=== PATIENT | male | born 1935 | race Caucasian/White ===

== ENCOUNTER 2024-04-18 09:00 | Day surgery (SDC) | payer MEDICARE, BC, SELFPAY ==
[2024-04-18] VITALS (23 sets, daily range): BP systolic 105–178; BP diastolic 62–110; PULSE 53–85; RESP 14–20; TEMP 35.8–36.4; O2SAT 96–100; BMI 28.8
[2024-04-18] MEDS: MIDAZOLAM HCL 1 MG/ML inj IVP (09:12)
[2024-04-18] MEDS: OXYCODONE (CR) 10 MG TAB.ER.12H PO (09:45)
[2024-04-18] MEDS: ACETAMINOPHEN 500 MG TABLET 1000 MG PO ×3 (09:45→21:35)
[2024-04-18] MEDS: CELECOXIB 200 MG CAPSULE PO (09:45)
[2024-04-18] MEDS: LACTATED RINGERS 1000 ML 1,000 ML 100 ML IV (09:50)
[2024-04-18] MEDS: fentaNYL 100 MCG/2 ML inj IVP (09:57)
--- NOTE | 2024-04-18 10:17 | P.NB_ITS ---
Nerve Block Nerve Block Time Seen by Provider: 10:10 Date Seen: 04/18/24 Type of block requested by surgeon for post-operative analgesia: SERGIO/LFCN Side: right Time out performed: Yes Verification of patient name: Yes Verification of date of : Yes Site marking: site marked Name of person performing procedure: Andrea Carbone Continuous monitoring Was continuous monitoring of O2 sat, B/P, quality assurance monitor body, recorded every 15 minutes?: Yes Procedure Checklist: sterile prep, needles and gloves Ultrasound guided. Images saved: Yes Medications given in 5ml increments after negative aspiration: Marcaine %: 0.5 mL: 30 Needle gauge: 20 Precedex (mcg): 25 Patient tolerated procedure well: Yes Additional comments: Injected in 5 mL increments after negative aspiration Block Charges Block Charge (with Pro Fee): Femoral Nerve Use of Ultrasound Machine for Block: Yes- US Guidance/pain block
--- NOTE | 2024-04-18 10:18 | SUR.PREOP ---
TIME?OUT:?954, right hip PT/RN/MDA?VERIFICATION?OF?SURGICAL?SITE,?PROCEDURE,?AND?CONSENT OBTAINED?PRIOR?TO?INVASIVE?PROCEDURE.
[2024-04-18] MEDS: TRANEXAMIC ACID 100 MG/ML INJ 1000 MG IV (10:32)
[2024-04-18] MEDS: CEFAZOLIN 2 GM INJ IVP (10:32)
--- NOTE | 2024-04-18 11:00 | CRLHL7_ITS ---
For Patients: As a result of the Century Cures Act, medical imaging exams and procedure reports are released immediately into your electronic medical record. You may view this report before your referring provider. If you have questions, please contact your health care provider. INDICATION: Right hip arthroplasty. Intraoperative evaluation. TECHNIQUE: Fluoroscopically guided intraoperative evaluation at the time of right hip arthroplasty. FINDINGS: Two spot images of the right hip demonstrate a right total hip arthroplasty. Adequate alignment. 61.8 seconds fluoroscopy time utilized. IMPRESSION: 61.8 seconds fluoroscopy time utilized intraoperatively. Dictated by Demar Alfaro MD @ 04/19/2024 2:44:05 PM (Electronically Signed)
--- NOTE | 2024-04-18 11:02 | SUR.OPER ---
PATIENT QUESTIONS ANSWERED SATISFACTORILY PREOPERATIVELY. PATIENT BROUGHT TO OR #2 PER CART AFTER ADMINISTRATION OF A BLOCK. Patient positioned supine on OR #2 bed. The perioperative team supported arms bilaterally on arm boards. Final approval of positioning by surgeon.
--- NOTE | 2024-04-18 12:11 | CRLHL7_ITS ---
For Patients: As a result of the Century Cures Act, medical imaging exams and procedure reports are released immediately into your electronic medical record. You may view this report before your referring provider. If you have questions, please contact your health care provider. INDICATION: Postoperative evaluation. Right hip arthroplasty. TECHNIQUE: AP pelvis and cross-table lateral view of the right hip. COMPARISON: Pre-surgical images March 06, 2024. FINDINGS: There is a new right total hip arthroplasty. The components are adequately aligned and well seated. Air within the soft tissues and joint space related to the surgery. IMPRESSION: New postsurgical change from right total hip arthroplasty. The components are adequately aligned and well seated. Dictated by Demar Alfaro MD @ 04/19/2024 2:50:11 PM (Electronically Signed)
--- NOTE | 2024-04-18 12:14 | PM.ORPRC ---
Procedure Note Date of procedure: 04/18/24 Procedure: PREOPERATIVE DIAGNOSIS: Right hip osteoarthritis POSTOPERATIVE DIAGNOSIS: Right hip osteoarthritis NAME OF OPERATION: Right total hip arthroplasty SURGEON: Sav Magallanes MD TITLE I DIRECTOR: Kristine Resendez PA-C, ANG Thomson IMPLANTS: 1. [employer] [place] # 56 sector ingrowth cup 2. 36 x 56 +4 neutral polyethylene 3. [place] # 8 standard collared cemented stem 4. 36 + 1.5 cobalt chrome femoral head ANESTHESIA: General ESTIMATED BLOOD LOSS: 280 cc COMPLICATIONS: None SPECIMENS: None DRAINS: None PREOPERATIVE ANTIBIOTICS: Ancef 2 grams INDICATIONS: The patient is a 88-year-old with a longstanding history of severe, unrelenting right hip pain secondary to end-stage right hip osteoarthritis. Despite appropriate nonoperative management, including activity modification, use of an assist device, anti-inflammatories, [id number] pain medication, physical therapy and injections, they continue to have pain and disability. Operative intervention was offered. The risks, benefits and expected outcomes were discussed in detail. These included but were not limited to: Infection, bleeding, injury to blood vessel or nerve, venous thromboembolism. All questions were answered to their satisfaction. Use of an client services assistant was necessary throughout the case for patient positioning and safety, soft tissue retraction and closure. PROCEDURE: The patient was placed supine on the Hydro table. General anesthesia was administered. The client services assistant made sure the patient was properly positioned. The right hip was prepped and draped in the usual sterile fashion. The image intensifier was brought in for a perfect AP pelvis and a perfect double tear drop AP view of each hip which were used for intraoperative templating with our fluoroscopic guide. An oblique incision was made 3 cm distal and 3 cm lateral to the anterior superior iliac spine. The client services assistant retracted the soft tissues to protect them. Subcutaneous dissection was taken with electrocautery to the superficial fascia. The fascia was divided in line with the incision. Blunt dissection was carried medially to the tensor fascia ronaldo and sartorius interval. Deep dissection was carried with electrocautery. The circumflex vessels were cauterized and divided. The capsule was exposed and then divided in a T-fashion, tagged with #1 Ethibond sutures. Retractors were placed in the joint, held by the client services assistant. The corkscrew was placed in the femoral head. The neck cut was made in the subcapital region. We made a second neck cut more distal. The napkin ring of bone was removed. The femoral head was removed intact. Acetabular retractors were placed, held by the client services assistant. The labrum was sharply debrided. The capsule was released. The 43 mm reamer was used to the true medial wall. We then enlarged in 2 mm increments using the image intensifier for our reamer placement. We impacted the cup which had excellent purchase. We placed the polyethylene. Attention was then turned to the proximal femur. The limb was placed in 140 degrees of external rotation, maximum extension and adduction. A significant amount of time was spent releasing the capsule to allow us to deliver the femur into the wound and complete the femoral side safely. Retractors were held by the client services assistant throughout the femoral preparation. The supervisor transferring and boxing and canal finder were used. Broaches were used to a stable size. The calcar reamer was used. Trial components were placed. The hip was reduced and was found to be stable with appropriate soft tissue tension. Length and offset had been nicely restored using the image intensifier and our fluoroscopic guide. Trial components were removed. The cement restrictor was placed. The canal was irrigated with pulse lavage and then thoroughly dried. Cement was placed retrograde with the gun and hand pressurized. The stem was placed in the cement mantle. The cement was allowed to harden. We placed the femoral head. Again, the hip was reduced and was found to be stable with appropriate soft tissue tension. Length and offset had been nicely restored. The client services assistant did a three minute dilute Betadine solution soak. The client services assistant irrigated the wound with 3 liters of normal saline via pulse lavage. The client services assistant repaired the anterior capsule with a #1 Vicryl and our previously placed Ethibond sutures. The client services assistant closed the fascia over the tensor fascia ronaldo with a #1 PDO Stratafix, subcutaneous tissues with 2-0 Vicryl, skin with a running 3-0 Stratafix and glue. A dry dressing was applied by the client services assistant. Sponge and needle counts were correct x 2. The patient tolerated the procedure well; there were no apparent complications. They were awakened and extubated in the operating room, sent to the Post-Anesthesia Care Unit in satisfactory condition. PLAN: 1. The patient will be mobilized with physical therapy, weight-bearing as tolerates 2. Xarelto x 5 days then aspirin x 30 days will be used for DVT prophylaxis 3. The patient will be discharged once medically appropriate
--- NOTE | 2024-04-18 13:02 | W.ANESCHARGE ---
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
--- NOTE | 2024-04-18 15:23 | P.IMCN_ITS ---
Date of Consult Consult date: 04/18/24 Requesting Physician: Orthopedics Primary Care Provider: Jayjay Borden MD Consult Narrative Narrative: HOSPITALIST CONSULT Right total hip arthroplasty SURGEON: Sav Magallanes MD SENIOR ELECTRICAL PROJECT MANAGER: Kristine Resendez PA-C, ANG Thomson ANESTHESIA: General ESTIMATED BLOOD LOSS: 280 cc COMPLICATIONS: None The hospital medicine team was asked by the orthopedic surgery team to manage the patient's atrial fibrillation not on anticoagulation, HTN, prediabetes, and hx of colon cancer. There have been no perioperative complications. I have updated and reviewed the active medical problems, past medical history, past surgical history, social history, allergies and medications in our electronic EMR. This includes a cross reference to care everywhere in [facility] and with [facility] databases. PHYSICAL EXAM: CODE STATUS: FULL CODE CONSTITUTIONAL: Conversive, good historian. A/O. Knows setting and context. VITAL SIGNS: see record. HEENT: Normocephalic, atraumatic. PERRL, EOMI, conjunctivae pink, no scleral icterus. Ears and nose externally normal. Pharynx normal. NECK: No JVD. No carotid bruit, no thyromegaly, no adenopathy. CHEST: Clear to auscultation bilaterally HEART: S1 and S2 normal. ABDOMEN: Flat, soft, nontender. Normal bowel sounds. Moderately obese. EXTREMITIES: No edema. MUSCULOSKELETAL: right hip has SDI; no obvious bleeding or hematoma. NEURO: Cranial nerves intact. Mentation normal. Normal affect. SKIN: No rashes, petechiae, concerning changes PSYCHIATRIC: Mentation normal. INVESTIGATIONS: EMR Reviewed; Pre-OP Reviewed DISPOSITION: DVT: 5 days of Xarelto, Asp 81mg BID for 25 days GI: PO intake PFSH [facility] Medical History (Updated 04/18/24 @ 19:20 by Paloma Gabriel MD) Osteoarthritis of right hip ?M16.11 - Unilateral primary osteoarthritis, right hip (ICD-10) Osteoarthritis of right shoulder ?M19.011 - Primary osteoarthritis, right shoulder (ICD-10) Right rotator cuff tear arthropathy ?M75.101 - Unspecified rotator cuff tear or rupture of right shoulder, not specified as traumatic (ICD-10) ?M12.811 - Other specific arthropathies, not elsewhere classified, right shoulder (ICD-10) Bradycardia ?R00.1 - Bradycardia, unspecified (ICD-10) Unspecified essential hypertension ?I10 - Essential (primary) hypertension (ICD-10) Atrial fibrillation ?I48.91 - Unspecified atrial fibrillation (ICD-10) GERD (gastroesophageal reflux disease) ?K21.9 - Gastro-esophageal reflux disease without esophagitis (ICD-10) Encounter for laboratory test ?Z01.89 - Encounter for other specified special examinations (ICD-10) Anemia (09/30/11) ?D64.9 - Anemia, unspecified (ICD-10) Port-A-Cath in place (01/05/12) ?Z95.828 - Presence of other vascular implants and grafts (ICD-10) Colon cancer (11/29/11) ?C18.9 - Malignant neoplasm of colon, unspecified (ICD-10) Surgical History (Updated 04/18/24 @ 16:09 by Buffy Wood ~ [facility]) 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) ?Z96.641 - Presence of right artificial hip joint (ICD-10) H/O lysis of adhesions ?Z98.890 - Other specified postprocedural states (ICD-10) History of carpal tunnel surgery of right wrist (01/16/08) ?Z98.890 - Other specified postprocedural states (ICD-10) S/P laparoscopic colectomy (11/08/11) ?Z90.49 - Acquired absence of other specified parts of digestive tract (ICD- 10) History of arthroscopy of right shoulder (01/27/09) ?Z98.890 - Other specified postprocedural states (ICD-10) History of carpal tunnel surgery of left wrist (12/10/08) ?Z98.890 - Other specified postprocedural states (ICD-10) H/O right hemicolectomy (11/08/11) ?Z90.49 - Acquired absence of other specified parts of digestive tract (ICD- 10) History of cholecystectomy ?Z90.49 - Acquired absence of other specified parts of digestive tract (ICD- 10) Social History (Reviewed 03/06/24 @ 09:27 by Buffy Wood ~ [facility], [facility]) Narrative: -Rocío former smoker 50+ years ago What is your current living situation?: I presently have a place to live In the past 12 months, utilities in danger of being shut off: no In past 12 months, lack of transportation kept you from medical appts, meetings, work, or getting things needed for daily living: no In the past 12 mos, have been you worried that your food would run out before you had money to buy more?: never true In the past 12 mos, the food you bought just didn't last and you didn't have money to buy more?: never true Smoking Status: Former smoker What tobacco products do you use: cigarettes Smoking quit date/years: >15 years ago Do you use any of these nicotine containing products: None Second hand tobacco smoke exposure: No How often do you have a drink containing alcohol: 2-3 times a week Alcohol type: beer How many standard drinks containing alcohol do you have on a typical day: 1 or 2 AUDIT-C Alcohol total score: 3 Caffeine: Yes How often does anyone, including family, friends and others, physically hurt you : never How often does anyone, including family, friends and others, insult or talk down to you: never How often does anyone, including family, friends and others, threaten you with harm: never How often does anyone, including family, friends and others, scream or curse at you: never Meds Home Medications and Allergies Home Medications ?Medication ?Instructions ?Recorded ?Confirmed ?Type aspirin 81 mg tablet,delayed 81 mg PO DAILY 10/14/22 04/18/24 History release atenolol 25 mg tablet 25 mg PO Q48H 10/14/22 04/18/24 History cholecalciferol (vitamin D3) 50 50 mcg PO DAILY 10/14/22 04/18/24 History mcg (2,000 unit) capsule hydrochlorothiazide 25 mg tablet 25 mg PO DAILY 10/14/22 04/15/24 History terazosin 2 mg capsule 4 mg PO HS 10/14/22 04/18/24 History Allergies Allergy/AdvReac Type Severity Reaction Status Date / Time lisinopril Allergy Dizziness Verified 03/06/24 09:25 Exam Const: Vital Signs, click to edit/add: Vital Signs - 24 hr 04/18/24 09:39 04/18/24 09:55 04/18/24 10:00 Temperature 97.0 F L Pulse Rate 80 82 82 Respiratory Rate 20 20 20 Blood Pressure 156/108 H 164/110 H 178/103 H Pulse Oximetry 98 98 99 Oxygen Delivery Me thod Room Air Nasal Cannula Nasal Cannula Oxygen Flow Rate 3 3 04/18/24 10:05 04/18/24 10:15 04/18/24 12:55 Temperature 96.9 F L Pulse Rate 79 77 53 L Respiratory Rate 20 20 14 Blood Pressure 162/110 H 139/99 H 107/65 Pulse Oximetry 99 99 96 Oxygen Delivery Me thod Nasal Cannula Nasal Cannula Room Air Oxygen Flow Rate 3 3 04/18/24 13:00 04/18/24 13:05 04/18/24 13:10 Temperature 97.0 F L Pulse Rate 64 60 59 L Respiratory Rate 14 16 16 Blood Pressure 105/62 119/80 115/81 Pulse Oximetry 98 98 98 Oxygen Delivery Me thod Room Air Room Air Room Air Oxygen Flow Rate 04/18/24 13:15 04/18/24 13:20 04/18/24 13:30 Temperature 97.3 F L 96.4 F L Pulse Rate 61 62 55 L Respiratory Rate 16 16 16 Blood Pressure 116/76 121/79 135/75 Pulse Oximetry 97 98 96 Oxygen Delivery Me thod Room Air Room Air Room Air Oxygen Flow Rate 04/18/24 13:45 04/18/24 14:00 04/18/24 14:15 Temperature 96.7 F L Pulse Rate 57 L 62 67 Respiratory Rate 16 16 16 Blood Pressure 130/69 130/87 132/87 Pulse Oximetry 98 99 99 Oxygen Delivery Me thod Room Air Room Air Room Air Oxygen Flow Rate 04/18/24 14:30 04/18/24 15:00 Temperature 97.6 F Pulse Rate 78 74 Respiratory Rate 16 16 Blood Pressure 123/73 153/91 H Pulse Oximetry 99 99 Oxygen Delivery Me thod Room Air Room Air Oxygen Flow Rate Assessment and Plan Assessment and plan (1) Status post right hip replacement: Problem comment: 04/18/2024, Dr. Magallanes Status: Acute (2) Atrial fibrillation: Problem comment: -rate controlled -placed on telemetry overnight -pt is not on chronic anticoagulation - we discussed at length is vitality/inde pendence and risk of cardioembolic stroke and lack of treatment for those events; pt will think about it Status: Acute (3) Essential hypertension: Problem comment: -stable Status: Acute (4) Prediabetes: Status: Acute
[2024-04-18] MEDS: CEFAZOLIN 2 GM in 0.9 % SODIUM CHLORIDE Mini-bag 100 ML IVPB (17:59)
--- NOTE | 2024-04-18 19:20 | PC.NURSE ---
The patient is pleasant and alert and orientated. Pain is adequately controlled with scheduled tylenol. R hip dressing is CDI with ice pack. VSS on RA. Up Ax1 w/ GB and RW. Calls appropriately. No N/v. Has voided. Call light within reach. Lanny RAPHAEL BSN
[2024-04-18] MEDS: TERAZOSIN HCL 1 MG CAPSULE 4 MG PO (21:35)
[2024-04-19] MEDS: CEFAZOLIN 2 GM in 0.9 % SODIUM CHLORIDE Mini-bag 100 ML IVPB (00:51)
[2024-04-19 02:19] VITALS: BP 142/90; PULSE 74; RESP 16; TEMP 35.9; O2SAT 99
[2024-04-19] MEDS: ACETAMINOPHEN 500 MG TABLET 1000 MG PO ×2 (04:01→10:58)
[2024-04-19] MEDS: OXYCODONE 5 MG TABLET PO ×2 (04:01→08:38)
--- NOTE | 2024-04-19 06:12 | PC.NURSE ---
End of shift [id number]:? Pt AxOx4, cooperative, and pleasant. Pt SBA GB W, tolerating activity well. Pt reported pain during?shift, advertising writer utilized repositioning, scheduled and PRN medication. Pt is continent of the bladder. CMS intact.?Dressing to the R hip is CDI. Pt appears resting with call light in reach.?? ?
[2024-04-19 06:48] LABS: Basophils Percent Auto 0.2 % (0.0-3.0); Eosinophils Percent Auto 0.2 % (0.0-7.0); Hematocrit 40.6 % (37.0-53.0); Hemoglobin* 13.7 gm/dL (13.5-17.5); Immature Granulocytes Pct Auto 0.3 %; Lymphocytes Percent Auto 10.7 % (20-44); Mean Corpuscular HGB Conc 34 gm/dL (32-36); Mean Corpuscular Hemoglobin 29 pg (26-34); Mean Corpuscular Volume 85 fL (80-100); Monocytes Percent Auto 6.7 % (0.0-11.0); Neutrophils Percent Auto 81.9 % (42.0-72.0); Platelet Count* 227 K/uL (140-440); RDW Coefficient of Variation % 12.6 % (11.5-15.5); Red Blood Count 4.77 m/uL (4.30-5.90); White Blood Count* 11.77 K/uL (4.50-11.00)
[2024-04-19 06:49] LABS: Slide Review Reflex No
[2024-04-19 06:57] LABS: Potassium* 4.5 mmol/L (3.6-5.1); Sodium* 133 mmol/L (135-149)
[2024-04-19 07:00] VITALS: RESP 18; O2SAT 94
[2024-04-19 07:00] LABS: Blood Urea Nitrogen* 30 mg/dL (7-30); Est. Creatinine Clearance* 54.75; Estimated Glomerular Filt Rate 73 ml/min
[2024-04-19 07:30] VITALS: PULSE 78
--- NOTE | 2024-04-19 08:20 | P.ORPN_ITS ---
Subjective Subjective Time Seen by Provider: 08:20 Date Seen: 04/19/24 Principal diagnosis: Status post right hip replacement Interval history: Tania is comfortable and conversive. He will discharge to home with his and daughter today. Ortho Exam Narrative Exam Narrative: Alert and oriented x3. Patient is in no acute distress. Converses without labored breathing. Hearing is grossly intact. Ambulates with a walker. Examination of the right hip shows the dressing is intact. Mild ecchymosis. Mild soft tissue edema. CMS intact right lower extremity. Mild pretibial edema. Calves are soft and nontender. No sign of infection. No erythema. No warmth. Const Vital Signs, click to edit/add: Vital Signs - 24 hr 04/18/24 09:39 04/18/24 09:55 04/18/24 10:00 Temperature 97.0 F L Pulse Rate 80 82 82 Pulse Rate [Left Pulse Oximeter] Respiratory Rate 20 20 20 Blood Pressure 156/108 H 164/110 H 178/103 H Blood Pressure [Right Arm] Pulse Oximetry 98 98 99 Oxygen Delivery Method Room Air Nasal Cannula Nasal Cannula Oxygen Flow Rate 3 3 04/18/24 10:05 04/18/24 10:15 04/18/24 12:55 Temperature 96.9 F L Pulse Rate 79 77 53 L Pulse Rate [Left Pulse Oximeter] Respiratory Rate 20 20 14 Blood Pressure 162/110 H 139/99 H 107/65 Blood Pressure [Right Arm] Pulse Oximetry 99 99 96 Oxygen Delivery Method Nasal Cannula Nasal Cannula Room Air Oxygen Flow Rate 3 3 04/18/24 13:00 04/18/24 13:05 04/18/24 13:10 Temperature 97.0 F L Pulse Rate 64 60 59 L Pulse Rate [Left Pulse Oximeter] Respiratory Rate 14 16 16 Blood Pressure 105/62 119/80 115/81 Blood Pressure [Right Arm] Pulse Oximetry 98 98 98 Oxygen Delivery Method Room Air Room Air Room Air Oxygen Flow Rate 04/18/24 13:15 04/18/24 13:20 04/18/24 13:30 Temperature 97.3 F L 96.4 F L Pulse Rate 61 62 55 L Pulse Rate [Left Pulse Oximeter] Respiratory Rate 16 16 16 Blood Pressure 116/76 121/79 135/75 Blood Pressure [Right Arm] Pulse Oximetry 97 98 96 Oxygen Delivery Method Room Air Room Air Room Air Oxygen Flow Rate 04/18/24 13:45 04/18/24 14:00 04/18/24 14:15 Temperature 96.7 F L Pulse Rate 57 L 62 67 Pulse Rate [Left Pulse Oximeter] Respiratory Rate 16 16 16 Blood Pressure 130/69 130/87 132/87 Blood Pressure [Right Arm] Pulse Oximetry 98 99 99 Oxygen Delivery Method Room Air Room Air Room Air Oxygen Flow Rate 04/18/24 14:30 04/18/24 15:00 04/18/24 15:30 Temperature 97.6 F Pulse Rate 78 74 Pulse Rate [Left Pulse Oximeter] Respiratory Rate 16 16 Blood Pressure 123/73 153/91 H Blood Pressure [Right Arm] Pulse Oximetry 99 99 97 Oxygen Delivery Method Room Air Room Air Room Air Oxygen Flow Rate 04/18/24 15:30 04/18/24 16:30 04/18/24 17:30 Temperature 97.0 F L 97.5 F L 97.5 F L Pulse Rate 85 72 83 Pulse Rate [Left Pulse Oximeter] Respiratory Rate 18 16 16 Blood Pressure 136/97 H 130/72 125/85 Blood Pressure [Right Arm] Pulse Oximetry 100 98 98 Oxygen Delivery Method Room Air Oxygen Flow Rate 04/18/24 18:24 04/18/24 19:30 04/18/24 23:00 Temperature 97.6 F 96.7 F L Pulse Rate 70 67 77 Pulse Rate [Left Pulse Oximeter] Respiratory Rate 16 16 Blood Pressure 121/72 130/99 H Blood Pressure [Right Arm] Pulse Oximetry 98 97 Oxygen Delivery Method Room Air Room Air Oxygen Flow Rate 04/18/24 23:00 04/18/24 23:00 04/19/24 02:19 Temperature 97.3 F L 96.7 F L Pulse Rate Pulse Rate [Left Pulse Oximeter] 82 74 Respiratory Rate 16 16 16 Blood Pressure Blood Pressure [Right Arm] 124/76 142/90 H Pulse Oximetry 97 97 99 Oxygen Delivery Method Room Air Room Air Room Air Oxygen Flow Rate Assessment and Plan Assessment and plan (1) Status post right hip replacement: Problem details: 04/18/2024, Dr. Magallanes Status: Acute Assessment and Plan: Plan for discharge is today, and when they meets discharge criteria. DVT prophylaxis upon discharge is Xarelto 10 mg for total of 5 days, then aspirin 81 mg b.i.d. for 30 days, frequent ambulation during the day with am bulation every hour. Remove dressing 1 week. Observe wound and phone Orthopedics with any questions or concerns Use Ice on operative hip unrestricted. Return to clinic in 1 week with PA for a wound check Return to clinic in 6 weeks with surgeon Minimize narcotic use. Wean off and discontinue soon as possible. Activities as tolerated. No strenuous activity. Attend outpt PT
[2024-04-19 08:30] VITALS: BP 124/70; PULSE 62; RESP 18; TEMP 36.5; O2SAT 96
[2024-04-19] MEDS: atenoloL 25 MG TABLET PO (08:39)
[2024-04-19] MEDS: SENNOSIDES 1 TAB TABLET 2 TAB PO (08:39)
[2024-04-19] MEDS: hydroCHLOROthiazide 25 MG TABLET PO (08:39)
[2024-04-19] MEDS: RIVAROXABAN 10 MG TABLET PO (08:39)
--- NOTE | 2024-04-19 12:22 | PC.NURSE ---
shift note: dc'd iv intact. Reviewed dc instructions and copies sent with pt at dc. Belongings sent with pt at dc. active ice sent with pt at dc.
== END 2024-04-19 11:09 | disposition home or self-care (01) ==
LOC: OR 09:01 → MEDSURG 09:06
PROVIDERS: PCP Surgery; Visit Provider Orthopaedic Surgery
PROC: (CPT 27130; principal; 2024-04-18 11:00)
DX: M16.11 Unilateral primary osteoarthritis, right hip (principal); G89.18 Other acute postprocedural pain; I48.20 Chronic atrial fibrillation, unspecified; I10 Essential (primary) hypertension; R73.03 Prediabetes; K21.9 Gastro-esophageal reflux disease without esophagitis; D64.9 Anemia, unspecified; Z95.828 Presence of other vascular implants and grafts; Z85.038 Personal history of other malignant neoplasm of large intestine
CPT/HCPCS: 27130; 01214; 36415; 64447; 73501; 76000; 76942; 82565; 84132; 84295; 84520; 85025; 86850; 86900; 86901; 97110; 97116; 97161; 97165; 97530; 97535; 99100; A9270; C1776; J0665; J0690; J1100; J2250; J2405; J2704; J3010; J7120

== ENCOUNTER 2024-05-23 10:00 | Outpatient (RCR) | payer MEDICARE, BC, SELFPAY ==
--- NOTE | 2024-04-08 12:27 | PT.OPEX ---
PT [facility] Outpatient Eval PT [facility] Outpatient Eval Start: 04/08/24 07:41 Freq: Status: Active Protocol: Document 04/08/24 12:13 SAKSHI (Rec: 04/08/24 12:27 SAKSHI [id number]) E-signed By Antionette Oreilly, PT Physical Therapy Outpatient Evaluation Insurance Information Recert Due Date 04/20/24 Insurance Name [employer] Medical Diagnosis R hip OA, pre-op SHAR Treating Diagnosis R hip pain, gait impairements Imaging Report Information Gr 3 R hip degeneration Referring MD Dr. Craig Subjective Preferred Name Don Subjective Pt has had worsening R hip pain over last few years. Is now painful to stand erect and limiting gait distances. He has to use a walking stick to amb 400' to mailbox. Pain Comments 10/19 seated, 12/19 amb Date of Last Physician Visit 03/06/34 Date of Next Physician Visit 04/24/24 Date of Surgery (If applicable) 04/18/24 Current Work Status Retired Occupation Worked for [employer] Precautions Treatment Precautions/Contraindications Ant SHAR Weight Bearing Status Weight Bear as Tolerated Therapy Limitations/Systems Review Not Limited Objective Other/Pertinent Objective R hip strength: Flex 3- pain Ext 3- lacking full ROM Hip ER 4 Hip IR 4 Quad 4 ROM: in supine lacking ~30 degrees from neutral, knee ext lacking ~20 degrees in supine- able to extend better in sitting sensation in tact Assessment Assessment/Impression Pt is a 88 yr old male c a h/o worsening hip pain and limitations in strength and ROM. He demonstrates poor core strength with multiple abdominal surgeries in the past and tenting along midline with transitional movement. He was educated further on management of constipation with pain medicine and post-op status as she has had h/o of colon cancer and surgeries. He was provided education about AD, falls precautions, hip precautions. He is increased in awareness of edema management and strengthening activities for pre and post-op status. Primary Functional Limitations sit/stand transfers, gait, sleeping posture, and stairs Plan of Care Rehabilitation Potential Good Physical Therapy Goals TO be indep c pre-op exercises and prepare self and home for post-op status. Will be re-assessed post-op for rehab goals. Coordination/Communication With Referral Source Frequency/Duration 1-2x/week for 12 weeks Patient Will Be Discharged From Therapy Completion of LTG(s),Skills Plateau,Independent w/HEP, Independently Progressing Evaluation Billing Untimed Code Treatment Minutes 30 PT Eval No Charge No Complexity Low Certification Information Initial Certification Date 04/08/24 Ending Certification Date 07/07/24 Provider Signature Required Yes Provider Signature Shows Agreement With POC & Medical Necessity Physician NPI Number Write NPI# Here Physician Comment/Change : Physician Signature & Date Requested Please Sign/Date Here
== END 2024-06-25 13:52 | disposition home or self-care (01) ==
PROVIDERS: PCP Surgery; Visit Provider Orthopaedic Surgery
DX: M16.11 Unilateral primary osteoarthritis, right hip (principal); Z51.89 Encounter for other specified aftercare
CPT/HCPCS: 97110; 97161; 97164; 97530; 97535